=== PATIENT | male | born 1990 | race African-American/Black ===

== ENCOUNTER 2017-12-29 10:07 | Emergency (ER) | payer MEDICAID ==
[~2017-12-29] VITALS: Ht 180.3 cm; Wt 83.5 kg
[2017-12-29] MEDS ORDERED: Lidocaine HCl 2% Jelly 5ml Tube TOPIC ONE (10:45)
[2017-12-29 10:47] VITALS: BP 128/80
--- NOTE | 2017-12-29 10:51 | Emergency Room Report ---
History of Present Illness General Chief Complaint: Pain Source: Patient Present Illness HPI Patient presents with hemorrhoids. He's had a diagnosis of this before. There' s been no bleeding this time however the past he's had bleeding. Pain is rated 7/10, aching burning, worse when sitting down or straining. No fevers. He's recently taken a colon cleanser. He has not moved his bowels much recently. He does spend long periods of time on the toilet. Denies rectal intercourse or trauma. No dysuria or abdominal pain. No NV. No URI sy. 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) Reviewed Nursing Documentation: PMH: Agreed; PSxH: Agreed Nursing Documentation-PMH Past Medical History: No Stated History Review of Systems Constitutional: Reports: see HPI Gastrointestinal: Reports: see HPI Genitourinary: Reports: see HPI Skin: Denies: rash Psychiatric: Denies: anxiety Neurological: Denies: numbness Hematologic/Lymphatic: Reports: see HPI Physical Exam Vital Signs Date Time Temp Pulse Resp B/P (MAP) Pulse Ox O2 Delivery O2 Flow Rate FiO2 12/29/17 10:31 98.9 63 18 128/80 98 Room Air 99.0 Sp02 EP Interpretation: reviewed, normal General Appearance: well appearing, no apparent distress, GCS 15 Head: normocephalic, atraumatic Eyes: bilateral eye normal inspection ENT: hearing grossly normal, normal voice, moist mucus membranes Neck: full range of motion, supple Respiratory: no respiratory distress, speaking full sentences Gastrointestinal: normal inspection, normal bowel sounds, non tender, soft Rectal: hemorrhoids - 2 external, one with thrombus Musculoskeletal: no calf tenderness Neurologic: alert, normal gait, grossly normal Psychiatric: mood/affect normal Skin: no rash Medical Decision Making Diagnostic Impression: Primary Impression: Acute hemorrhoid ER Course Patient with hemorrhoids. Due to age and prior hx, doubt cancer. Based on exam , no evidence of abscess. Offered to tamar them - declined. Anesthetic jelly ordered. Discussed treatment plan. Patient stable for outpatient observation and treatment. Last Vital Signs Date Time Temp Pulse Resp B/P (MAP) Pulse Ox O2 Delivery O2 Flow Rate FiO2 12/29/17 11:03 99.0 63 18 128/80 98 Room Air 99.0 Status: improved Disposition: HOME, SELF-CARE Condition: Improved Scripts Lactulose (LACTULOSE*) 20 Gm/30 Ml Solution 30 ML ORAL BID, #240 ML 0 Refills Prov: Isidro Clemente M.D. 12/29/17 Benzocaine (AMERICAINE) 28 Gm Oint...g. 1 APPLIC TP BID PRN for For Pain, #30 GM Prov: Isidro Clemente M.D. 12/29/17 Hydrocortisone Acetate* (ANUSOL-HC*) 25 Mg Supp.rect 1 SUPP RECTAL TWICE A DAY, #14 SUPP 1 Refill Prov: Isidro Clemente M.D. 12/29/17 Isidro Clemente M.D. Dec 29, 2017 10:51
[2017-12-29] MEDS ORDERED: ANUSOL-HC25 MG RECTAL (10:55)
[2017-12-29] MEDS ORDERED: AMERICAINE28 G1 TP (10:55)
[2017-12-29] MEDS ORDERED: LACTULOSE20 GM/301 ORAL (10:55)
[2017-12-29 11:03] VITALS: BP 128/80
== END 2017-12-29 11:00 | disposition home or self-care (01) ==
LOC: EMR 11:00
DX: K64.5 Perianal venous thrombosis (principal)
CPT/HCPCS: 99284

== ENCOUNTER 2018-01-04 15:18 | Emergency (ER) | payer MEDICAID ==
[~2018-01-04] VITALS: Ht 180.3 cm; Wt 81.6 kg
[~2018-01-04 15:18] MED LIST: AMERICAINE28 G1 TP; ANUSOL-HC25 MG RECTAL; LACTULOSE20 GM/301 ORAL
[2018-01-04] MEDS ORDERED: TRAMADOL HCL50 MG ORAL (15:31)
[2018-01-04] MEDS ORDERED: NUPERCAINAL (15:31)
[2018-01-04] MEDS ORDERED: MOTRIN IB200 MG ORAL (15:31)
[2018-01-04] MEDS ORDERED: LACTULOSE20 GM/301 ORAL (15:31)
[2018-01-04 15:36] VITALS: BP 122/80
--- NOTE | 2018-01-04 15:39 | Emergency Room Report ---
History of Present Illness General Chief Complaint: General Complaint Source: Patient Present Illness HPI 27-year-old male presents to the emergency department complaining of scant bright red blood per rectum on toilet paper 3 days. Patient reports that 3 days ago he had about a half tablespoon of blood following recent diagnosis of thrombosed hemorrhoid one week ago which he declined to have IND. Patient states that he has been taking lactulose as well as utilizing hydrocortisone suppositories and pain medication. Patient states that over the course of the last 3 days the blood has decreased in amount however he still wanted to get evaluated as he has never had bleeding from his previous history of hemorrhoids. Patient is also requesting topical hydrocortisone instead of suppositories. He denies pain. Denies constipation reports loose stools after taking lactulose. Denies fevers or chills. Denies CP, Palpitations, LOC, AMS, dizziness, Changes in Vision, Sensation, paresthesias, or a sudden severe headache. Allergies: Coded Allergies: No Known Allergies (Unverified , 12/29/17) Patient History Past Medical History: see triage record Past Surgical History: none Pertinent Family History: none Reviewed Nursing Documentation: PMH: Agreed; PSxH: Agreed Nursing Documentation-PMH Past Medical History: No History, Except For Review of Systems All Other Systems: negative except mentioned in HPI Physical Exam Vital Signs Date Time Temp Pulse Resp B/P (MAP) Pulse Ox O2 Delivery O2 Flow Rate FiO2 01/04/18 15:26 98.2 66 18 122/80 96 Room Air 98.2 Sp02 EP Interpretation: reviewed, normal General Appearance: no apparent distress, alert, GCS 15, non-toxic Head: normocephalic, atraumatic ENT: hearing grossly normal, normal voice Neck: full range of motion Respiratory: lungs clear, normal breath sounds, speaking full sentences Cardiovascular #1: regular rate, rhythm Gastrointestinal: normal bowel sounds, non tender, soft, other - Deferred rectal exam, normal abdominal exam, no evidence of acute blood loss. . bowel sounds are normo active. Rectal: deferred Musculoskeletal: back normal, gait/station normal, normal range of motion Neurologic: alert, oriented x3, responsive, motor strength/tone normal, sensory intact, speech normal, grossly normal Psychiatric: judgement/insight normal Skin: normal color, no rash, warm/dry, well hydrated Lymphatic: no adenopathy Medical Decision Making PA Attestation Dr. Tavares is my supervising physician whom pt. management has been discussed with. Diagnostic Impression: Primary Impression: External hemorrhoid, bleeding ER Course 27-year-old male presents to the emergency department complaining of scant bright red blood per rectum on toilet paper 3 days. Patient reports that 3 days ago he had about a half tablespoon of blood following recent diagnosis of thrombosed hemorrhoid one week ago which he declined to have IND. Patient states that he has been taking lactulose as well as utilizing hydrocortisone suppositories and pain medication. Patient states that over the course of the last 3 days the blood has decreased in amount however he still wanted to get evaluated as he has never had bleeding from his previous history of hemorrhoids. Patient is also requesting topical hydrocortisone instead of suppositories. He denies pain. Denies constipation reports loose stools after taking lactulose. Denies fevers or chills. Denies CP, Palpitations, LOC, AMS, dizziness, Changes in Vision, Sensation, paresthesias, or a sudden severe headache. Ddx considered but are not limited to constipation , anal fissure, perianal abscess, rectal wall tear, thrombosed hemorrhoid, hemorrhoid. Vital signs: are WNL, pt. is afebrile H&PE are most consistent with Deferred rectal exam, normal abdominal exam, no evidence of acute blood loss. . bowel sounds are normo active. ORDERS: None required at this time ED INTERVENTIONS: - Discussed the patient's self care interventions for hemorrhoids DISCHARGE: At this time pt. is stable for d/c to home. Will provide printed patient care instructions, and any necessary prescriptions. Care plan and follow up instructions have been discussed with the patient prior to discharge. Last Vital Signs Date Time Temp Pulse Resp B/P (MAP) Pulse Ox O2 Delivery O2 Flow Rate FiO2 01/04/18 15:26 98.2 66 18 122/80 96 Room Air 98.2 Disposition: HOME, SELF-CARE Condition: Stable Scripts Docusate Sodium* (COLACE*) 100 Mg Capsule 100 MG ORAL DAILY, #30 CAP Prov: Fiorella Alvares 01/04/18 Acetaminophen* (TYLENOL EXTRA STRENGTH*) 500 Mg Tablet 500 MG ORAL Q6H, #20 TAB 0 Refills Prov: Fiorella Alvares 01/04/18 Hydrocortisone Hc 2.5% Cream (ANUSOL-HC 2.5% CREAM) Y Cr 1 APPLIC RC BID, #30 GM Prov: Fiorella Alvares 01/04/18 Patient Instructions: Hemorrhoids Additional Instructions: Take medications as directed. Follow up with a Primary Care Provider in 3-5 days, even if your symptoms have resolved. --Please review list of primary care clinics, if you do not already have a primary care provider Return sooner to ED if new symptoms occur, or current symptoms become worse. - Please note that this Emergency Department Report was dictated using [employer] retreader technology software, occasionally this can lead to erroneous entry secondary to interpretation by the dictation equipment. Fiorella Alvares Jan 04, 2018 15:39
[2018-01-04] MEDS ORDERED: ANUSOL-HC30 GM RC (15:58)
[2018-01-04] MEDS ORDERED: COLACE100 MG ORAL (15:58)
[2018-01-04] MEDS ORDERED: TYLENOL EXTRA500 MG ORAL (15:58)
[2018-01-04 16:05] VITALS: BP 122/80
== END 2018-01-04 16:52 | disposition home or self-care (01) ==
LOC: EMR 16:03
DX: K64.4 Residual hemorrhoidal skin tags (principal)
CPT/HCPCS: 99284

== ENCOUNTER 2019-09-09 23:41 | Emergency (ER) | payer MEDICAID ==
[~2019-09-09] VITALS: Ht 180.3 cm; Wt 88.5 kg
[~2019-09-09 23:41] MED LIST changes: +ANUSOL-HC30 GM RC; +COLACE100 MG ORAL; +MOTRIN IB200 MG ORAL; +NUPERCAINAL; +TRAMADOL HCL50 MG ORAL; +TYLENOL EXTRA500 MG ORAL
[2019-09-10 00:10] VITALS: BP 137/84
[2019-09-10] MEDS ORDERED: HYDROcodone/Acetamin 5/325 tab ONE (02:14)
[2019-09-10] MEDS ORDERED: HYDROcodone/Acetamin 5/325 tab ORAL ONE (02:15)
[2019-09-10 03:00] VITALS: BP 128/80
--- NOTE | 2019-09-10 03:00 | NUR ---
ER DISCHARGE NOTE: Patient is cleared to be discharged per ERMD, pt is aox4, on room air, with stable vital signs. pt was given dc and prescription instructions, pt was able to verbalize understanding, pt id band removed without complications. pt is able to ambulate with steady gait. pt took all belongings.
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
--- NOTE | 2019-09-11 03:00 | NUR ---
Note renurowdy in EDM - 09/21/19 at 0624 by JOSELYN ER DISCHARGE NOTE: Patient is cleared to be discharged per ERMD, pt is aox4, on room air, with stable vital signs. pt was given dc and prescription instructions, pt was able to verbalize understanding, pt id band removed without complications. pt is able to ambulate with steady gait. pt took all belongings.
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
== END 2019-09-10 | disposition home or self-care (01) ==
LOC: EMR 09-10 05:58
DX: S16.1XXA Strain of muscle, fascia and tendon at neck level, initial encounter (principal); S39.012A Strain of muscle, fascia and tendon of lower back, initial encounter; V43.52XA Car driver injured in collision with other type car in traffic accident, initial encounter; Y92.410 Unspecified street and highway as the place of occurrence of the external cause
CPT/HCPCS: 72020; 72040; Z7502; 99283